=== PATIENT | female | born 1965 | race Caucasian/White ===

== ENCOUNTER 2024-08-22 20:09 | Emergency (ER) | payer MEDICAID ==
[~2024-08-22] VITALS: Ht 162.6 cm; Wt 56.7 kg
[2024-08-22 20:40] VITALS: BP 114/66; TEMP 98.3; O2SAT 98
[2024-08-22] MEDS ORDERED: LIDOCAINE 1% INJ 50 ML MDV IJ ONE (20:52)
[2024-08-22] MEDS: BACITRACIN ZINC OINT PACKET 1 EA PACKET TP ONE (21:21)
[2024-08-22] MEDS: LIDOCAINE HCL/PF 1% 30 ML VIAL TP ONE (21:21)
== END 2024-08-22 21:27 | disposition home or self-care (01) ==
LOC: ER 20:13
DX: M67.441 Ganglion, right hand (principal)
CPT/HCPCS: 99282; 10060; J3490 ×2; A6403